=== PATIENT | female | born 1980 | race Caucasian/White ===

== ENCOUNTER → 2024-05-12 | Outpatient (CLI) | payer BC ==
[~2024-05-12] MED LIST: CETI10CA5 PO; FAT BURNER PO
== END | disposition home or self-care (01) ==
LOC: RAH 08:55
PROVIDERS: ATTEND Family Medicine
DX: Z12.31 Encounter for screening mammogram for malignant neoplasm of breast (principal); N63.20 Unspecified lump in the left breast, unspecified quadrant
CPT/HCPCS: 77067

== ENCOUNTER → 2024-05-27 | Outpatient (CLI) | payer BC | END | disposition home or self-care (01) | LOC: RAH 12:28 | PROVIDERS: ATTEND Family Medicine | DX: N63.25 Unspecified lump in the left breast, overlapping quadrants (principal); N63.32 Unspecified lump in axillary tail of the left breast; R92.8 Other abnormal and inconclusive findings on diagnostic imaging of breast | CPT/HCPCS: 76641; 77065 ==